=== PATIENT | female | born 1955 | race Two or more races ===

== ENCOUNTER → 2018-09-29 | Outpatient (REF) | payer OTHER ==
[~2018-09-29] MED LIST: AMOX-362 PO; CLAR-13 PO; HYDR-2966 PO; IBU600 PO; LEVO50TA86 PO; NAPR220C12 PO; PANT40SU3 PO; SUCR1TAB85 PO; [UNRECOGNIZED DRUG - REMARK]
--- NOTE | 2018-09-30 09:51 | RADIOLOGY IMAGING REPORT ---
FACILITY: [facility] - [place] PATIENT NAME: CATHLEEN US : [id number] MR: [id number] V: [id number] EXAM DATE: [id number] ORDERING PHYSICIAN: NIRALI FRAGOSO TECHNOLOGIST: Shital Bridges PROCEDURE: BILATERAL DIGITAL SCREENING MAMMOGRAM WITH CAD ASSISTED INTERPRETATION & 3D TOMOSYNTHESIS. REASON FOR STUDY: Screening. FAMILY HISTORY OF BREAST CANCER: None. BREAST PROCEDURES/TREATMENTS: None. COMPARISON: None. VIEWS OBTAINED: Bilateral 2D & 3D full field CC & MLO projections. BREAST DENSITY: The breasts are heterogeneously dense which can obscure small masses. MAMMOGRAM FINDINGS: There are several asymmetries in the deep central Right breast as seen on the Right MLO view best appreciated on Tomographic slice 27 for which Spot compression view is recommended and possibly Right breast Ultrasound depending on the additional imaging findings. There is a focal asymmetry in the lateral portion of the Left breast in the middle depth on the Left CC view appears to be in the upper portion of the Left breast on the Left MLO view for which Spot compression view is recommended and possible the Left breast Ultrasound. In the upper portion of the Left breast on the Left MLO view Tomographic slice 27 there is suggestion of a nodular density for which Spot compression view is recommended. IMPRESSION: BIRADS 0: Incomplete. Additional views of both breasts and possibly bilateral breast Ultrasound recommended as described. DIAGNOSTIC CATEGORY 0--INCOMPLETE: NEED ADDITIONAL IMAGING EVALUATION. RECOMMENDATIONS: ADDITIONAL MAMMOGRAPHIC VIEWS REQUIRED: BILATERAL BREASTS. ULTRASOUND: BILATERAL BREASTS. Dictated by: Toyin Tarango M.D. on 09/29/2018 at 17:59 Transcribed by: VIRGIL on 09/30/2018 at 8:08 Approved by: Toyin Tarango M.D. on 09/30/2018 at 9:48 [facility]
== END ==
LOC: EDSTATUS 00:12 → MAMO 00:12
PROVIDERS: ATTEND Family Medicine
DX: R92.2 Inconclusive mammogram (principal)
CPT/HCPCS: 77063; 77067

== ENCOUNTER → 2018-10-15 | Outpatient (REF) ==
--- NOTE | 2018-10-21 10:49 | RADIOLOGY IMAGING REPORT ---
FACILITY: [facility] - [place] PATIENT NAME: CATHLEEN US : [id number] MR: [id number] V: [id number] EXAM DATE: [id number] ORDERING PHYSICIAN: NOE CASTREJON TECHNOLOGIST: Shital Bridges PROCEDURE:BILATERAL DIAGNOSTIC DIGITAL MAMMOGRAM WITH CAD ASSISTED INTERPRETATION & 3D TOMOSYNTHESIS. REASON FOR STUDY: Asymmetry Right & Left breasts. COMPARISON STUDIES: 09/29/2018. VIEWS OBTAINED: Spot compression CC Right breast, Spot compression CC Left breast, & Spot compression MLO Left breast. BREAST DENSITY: MAMMOGRAM FINDINGS: The previously seen focal asymmetries Right & Left breast do not persist on Spot compression imaging. No mammographic evidence of malignancy. DIAGNOSTIC CATEGORY 2--BENIGN FINDING. RECOMMENDATIONS: ROUTINE MAMMOGRAM AND CLINICAL EVALUATION IN 1YR. IMPRESSION: BIRADS 2: Benign finding. This was discussed with the patient by Dr. Perez. Dictated by: Kannan Perez M.D. on 10/15/2018 at 15:13 Transcribed by: VIRGIL on 10/16/2018 at 10:19 Approved by: Kannan Mireles on 10/21/2018 at 10:45 [facility]
== END ==
LOC: MAMO 00:49
PROVIDERS: ATTEND Nurse Practitioner
DX: R92.2 Inconclusive mammogram (principal)
CPT/HCPCS: 77062; 77066